=== PATIENT | male | born 1960 | race African-American/Black ===

== ENCOUNTER 2017-01-15 09:02 | Emergency (ER) | payer SELFPAY ==
[~2017-01-15] VITALS: Ht 172.7 cm; Wt 65.0 kg
[~2017-01-15 09:02] MED LIST: CIPR500T4 PO
[2017-01-15 09:03] VITALS: BP 108/69; PULSE 60; RESP 18; TEMP 98.4; O2SAT 100
[2017-01-15] MEDS ORDERED: PRED20 PO (09:23)
[2017-01-15] MEDS ORDERED: NON-500T13 PO (09:23)
[2017-01-15] MEDS ORDERED: CYCL1TAB29 PO (09:23)
--- NOTE | 2017-01-15 09:28 | PD ---
HPI Chief Complaint: Pain: Acute or Chronic Time Seen by Provider: 09:24 Travel History International Travel<30 days: No Contact w/Intl Traveler<30days: No Traveled to known affect area: No History of Present Illness HPI 56-year-old Afro-[place] male presents to the emergency Department with sudden onset left lower back and posterior left hip pain since yesterday. Patient states she was washing some cars yesterday and may have injured it doing that, but through the evening is gotten worse where he is having pain of 8 out of 10, but no weakness. He denies bowel or bladder problems. No history of back pain in the past. No pain in the right hip. He has no known drug allergies. PFSH Past Surgical History Appendectomy: Yes Social History Alcohol Use: No Tobacco Use: Yes Substance Use: No Allergies-Medications (Allergen,Severity, Reaction): Coded Allergies: No Known Allergies (Unverified , 12/12/15) Reported Meds & Prescriptions Reported Meds & Active Scripts Active Non-Aspirin Pain Relief ES (Acetaminophen) 500 Mg Tab 1,000 Mg PO Q6HR PRN Prednisone 20 Mg Tab 20 Mg PO BID Flexeril (Cyclobenzaprine HCl) 10 Mg Tab 10 Mg PO TID Cipro (Ciprofloxacin HCl) 500 Mg Tab 500 Mg PO BID 7 Days Review of Systems Except as stated in HPI: all other systems reviewed are Neg General / Constitutional: No: Fever Eyes: No: Visual changes HENT: No: Headaches Cardiovascular: No: Chest Pain or Discomfort Respiratory: No: Shortness of Breath Gastrointestinal: No: Abdominal Pain Genitourinary: No: Dysuria Musculoskeletal: Positive: Arthralgias, Pain Skin: No Rash Neurologic: No: Weakness Psychiatric: No: Depression Endocrine: No: Polydipsia Hematologic/Lymphatic: No: Easy Bruising Physical Exam Narrative GENERAL: Patient appears in mild distress. SKIN: Warm and dry. Normal color. Normal turgor. No rash. HEAD: Atraumatic. Normocephalic. EYES: Pupils equal and round. No scleral icterus. No injection or drainage. ENT: No nasal bleeding or discharge. Mucous membranes pink and moist. Pharynx is clear. Airway is patent. NECK: Trachea midline. Neck is supple and nontender. CARDIOVASCULAR: Regular rate and rhythm. RESPIRATORY: No accessory muscle use. Clear to auscultation. Breath sounds equal bilaterally. MUSCULOSKELETAL: Extremities without clubbing, cyanosis, or edema. No obvious deformities. Patient is tenderness along the left lower lumbar spine of the sciatic notch. He has positive straight leg raise pain. She 42. He has no weakness or decreased plantar or dorsal flexion. Deep tendon reflexes are 2+ equally bilaterally. NEUROLOGICAL: Awake and alert. No obvious cranial nerve deficits. Motor grossly within normal limits. Five out of 5 muscle strength in the arms and legs. Normal speech. PSYCHIATRIC: Appropriate mood and affect; insight and judgment normal. Data Data Last Documented VS Vital Signs Date Time Temp Pulse Resp B/P Pulse Ox O2 Delivery O2 Flow Rate FiO2 01/15/17 09:03 98.4 60 18 108/69 100 Room Air MDM Medical Decision Making Medical Screen Exam Complete: Yes Emergency Medical Condition: Yes Differential Diagnosis Lumbago. Left hip sprain. Sciatica. Narrative Course Patient is felt to have left-sided sciatica. Patient is given prednisone 20 mg twice a day 5 days. Patient is given Flexeril 5 mg one every 8 hours when necessary muscle spasm. 15. Patient is given Tylenol 500 mg he is to take 2 tablets every 6 hours when necessary pain #60. Patient is to use heat followed by ice, and gentle stretching. Patient follow up if symptoms do not improve or worsen as needed. Diagnosis Primary Impression: Left-sided low back pain with sciatica Qualified Code: M54.42 - Acute left-sided low back pain with left-sided sciatica Referrals: [facility] Patient Instructions: General Instructions, Sciatica (ED) Additional Instructions: Patient is felt to have left-sided sciatica. Patient is given prednisone 20 mg twice a day 5 days. Patient is given Flexeril 5 mg one every 8 hours when necessary muscle spasm. 15. Patient is given Tylenol 500 mg he is to take 2 tablets every 6 hours when necessary pain #60. Patient is to use heat followed by ice, and gentle stretching. Patient follow up if symptoms do not improve or worsen as needed. Scripts Acetaminophen (Non-Aspirin Pain Relief ES)500 Mg Tab1,000 Mg PO Q6HR PRN (PAIN) #60 TAB Prov:Manjeet Cee MD 01/15/17 Prednisone 20 Mg Tab20 Mg PO BID #10 TAB Prov:Manjeet Cee MD 01/15/17 Cyclobenzaprine (Flexeril)10 Mg Tab10 Mg PO TID #15 TAB Prov:Manjeet Cee MD 01/15/17 Disposition: 01 DISCHARGE HOME Condition: Stable Leif Suazo Jan 15, 2017 09:28
== END 2017-01-15 09:51 | disposition home or self-care (01) ==
LOC: NEPK 09:02
DX: M54.42 Lumbago with sciatica, left side (principal); Z72.0 Tobacco use
CPT/HCPCS: 99284